=== PATIENT | female | born 1965 | race Two or more races ===

== ENCOUNTER → 2019-01-09 | Emergency (ER) | payer OTHER ==
[~2019-01-09] VITALS: Ht 152.4 cm; Wt 70.8 kg
[~2019-01-09] MED LIST: FENOFIBRATE40 MG; GLIMEPIRIDE4 MG; LANTUS SOL100 UNIT/1; ZOCOR20 MG; [UNRECOGNIZED DRUG - OTHER]
== END | disposition home or self-care (01) ==
LOC: EDBD 17:05 → ER 17:05
DX: N39.0 Urinary tract infection, site not specified (principal)

== ENCOUNTER 2019-01-12 14:49 | Emergency (ER) | payer OTHER ==
[~2019-01-12] VITALS: Ht 154.9 cm; Wt 70.8 kg
== END 2019-01-12 17:05 | disposition home or self-care (01) ==
LOC: ER 14:49
DX: N39.0 Urinary tract infection, site not specified (principal)

== ENCOUNTER 2021-11-06 09:12 | Emergency (ER) | payer OTHER ==
[~2021-11-06] VITALS: Ht 157.5 cm; Wt 72.1 kg
== END 2021-11-06 14:32 | disposition home or self-care (01) ==
LOC: ER 09:12
DX: S00.81XA Abrasion of other part of head, initial encounter (principal); W01.0XXA Fall on same level from slipping, tripping and stumbling without subsequent striking against object, initial encounter; Y93.89 Activity, other specified; Y92.017 Garden or yard in single-family (private) house as the place of occurrence of the external cause; Z88.6 Allergy status to analgesic agent; Z79.84 Long term (current) use of oral hypoglycemic drugs; E11.9 Type 2 diabetes mellitus without complications; I10 Essential (primary) hypertension

== ENCOUNTER 2021-12-09 10:40 | Emergency (ER) | payer OTHER ==
[~2021-12-09] VITALS: Ht 154.9 cm; Wt 68.0 kg
[2021-12-09] MEDS ORDERED: JARDIANCE25 MG PO (11:29)
== END 2021-12-09 15:34 | disposition home or self-care (01) ==
LOC: ER 10:40
DX: K29.70 Gastritis, unspecified, without bleeding (principal); E11.9 Type 2 diabetes mellitus without complications; Z79.84 Long term (current) use of oral hypoglycemic drugs; Z88.6 Allergy status to analgesic agent; I10 Essential (primary) hypertension